=== PATIENT | female | born 1960 | race Caucasian/White ===

== ENCOUNTER 2019-02-02 21:20 | Emergency (ER) | payer SELFPAY ==
[~2019-02-02] VITALS: Ht 157.5 cm; Wt 72.6 kg
[2019-02-02 21:25] VITALS: BP 132/78
--- NOTE | 2019-02-02 21:25 | NUR ---
ED Nurse Note: Pt ambulated to ED from home c/o pain 10/10 in head, neck, back, and RT ankle sprain occured January 23. Pt is A&Ox4, VSS
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
--- NOTE | 2019-02-02 22:01 | NUR ---
ED Nurse Note: pt refused motrin, states it doesn't help, notified
[2019-02-02] MEDS ORDERED: HYDROcodone/Acetamin 5/325 tab ORAL ONE (22:15)
[2019-02-02] MEDS ORDERED: NAPROXEN500 M2 ORAL (22:51)
[2019-02-02 23:00] VITALS: BP 127/78
--- NOTE | 2019-02-02 23:00 | NUR ---
ER DISCHARGE NOTE: Patient is cleared to be discharged per ERMD, pt is aox4, on room air, with stable vital signs. pt was given dc and prescription instructions, pt was able to verbalize understanding, pt id band removed. pt is able to ambulate with steady gait. pt took all belongings.
--- NOTE | 2019-02-03 10:38 | Diagnostic Imaging Report ---
Indication: Headache head trauma Technique: Contiguous 5 mm thick transaxial imaging of the head obtained in a Siemens Sensation [address] scanner. Soft tissue and bone windows generated. Automatic Exposure Control was utilized. Total Dose length Product (DLP): 1572.[address] Dose Index Volume (CTDIvol): 70.38,13.06 mGy Comparison: none Findings: The size and configuration of the cortical sulci, basal cisterns, and ventricles are within normal limits for age. There is no mass effect, midline shift, or edema identified. There is no evidence of acute hemorrhage or abnormal intra-axial or extra-axial fluid collections. The bones and soft tissues are unremarkable. Impression: No mass effect, edema or acute bleed. [facility] has communicated the preliminary results to the Emergency Department. Their findings are largely concordant with this report. The CT scanner at [facility] is accredited by the [employer] and the scans are performed using dose optimization techniques as appropriate to a performed exam including Automatic Exposure control.
--- NOTE | 2019-02-03 10:43 | Diagnostic Imaging Report ---
Indication: Neck trauma and pain Technique: Continuous helical imaging of the cervical spine was obtained transaxially from the skull base to the upper thoracic spine. 2-D coronal and sagittal reformatted images were obtained. Automatic Exposure Control was utilized. Total Dose length Product (DLP): 1572.[address] Dose Index Volume (CTDIvol): 70.38,13.06 mGy Comparison: None Findings: There is no evidence of an acute fracture or malalignment. Atlantoaxial alignment appears normal. Height and configuration of the vertebral bodies and intervertebral discs are within normal limits. There is minimal endplate spurring. Uncovertebral joints and facets are unremarkable. There is no soft tissue swelling. There is massive enlargement of the left thyroid lobe which is partially imaged on this exam and extends into the superior mediastinum. There is associated rightward deviation of the trachea due to mass effect. Heterogeneity and calcification of the thyroid gland also noted. Impression: No evidence of acute injury involving the cervical spine. Massive enlargement of the left thyroid lobe The CT scanner at [facility] is accredited by the [employer] and the scans are performed using dose optimization techniques as appropriate to a performed exam including Automatic Exposure control.
== END 2019-02-02 23:00 | disposition home or self-care (01) ==
LOC: EMR 21:38
DX: S16.1XXA Strain of muscle, fascia and tendon at neck level, initial encounter (principal); F07.81 Postconcussional syndrome; E04.9 Nontoxic goiter, unspecified; Z88.0 Allergy status to penicillin; V43.62XA Car passenger injured in collision with other type car in traffic accident, initial encounter; Y92.410 Unspecified street and highway as the place of occurrence of the external cause
CPT/HCPCS: 70450; 72125; 99284